=== PATIENT | male | born 1960 | race Two or more races ===

== ENCOUNTER 2021-02-14 15:38 | Inpatient (IN) | payer OTHER, MEDICAID ==
[~2021-02-14] VITALS: Ht 165.1 cm; Wt 90.7 kg
[2021-02-14] MEDS ORDERED: HYDR-4001 PO (16:23)
[2021-02-14] MEDS ORDERED: GABA-532 PO (16:23)
[2021-02-14] MEDS ORDERED: METO-411 PO (16:23)
[2021-02-14] MEDS ORDERED: BENA40TA9 PO (16:23)
[2021-02-14] MEDS ORDERED: SIMV-43 PO (16:23)
[2021-02-14] MEDS ORDERED: MECL-115 PO (16:23)
[2021-02-14] MEDS ORDERED: OMEP20CA14 PO (16:23)
[2021-02-14] MEDS ORDERED: KETOROLAC 15MG/ML VIAL IV ONE (18:45)
[2021-02-14] MEDS ORDERED: MORPHINE SULFATE 4 MG/ML CPJ (NOT FOR IM USE) IV ONE (18:45)
[2021-02-14] MEDS ORDERED: PREDNISONE 20MG TABLET PO ONE (18:45)
[2021-02-14] MEDS ORDERED: KETOROLAC 30MG/ML VIAL IV NR (19:15)
[2021-02-14 19:16] LABS: BASOPHILS % 1.3 % (0.0-2.0); EOSINOPHILS % 2.4 % (0.0-5.0); HEMATOCRIT. 35.7 % (42.0-52.0); HEMOGLOBIN. 11.8 g/dL (14.0-18.0); LYMPHOCYTES % 24.7 % (20.0-50.0); MEAN CORPUSCULAR HEMOGLOBIN 30.4 pg (28.0-32.0); MEAN CORPUSCULAR VOLUME 91.8 fL (80.0-94.0); MEAN PLATELET VOLUME 8.2 fl (7.4-10.4); MONOCYTES % 9.7 % (2.0-8.0); NEUTROPHILS % 61.9 % (40.0-76.0); PLATELET 234 x1000/uL (130-400); RED BLOOD CELL COUNT 3.88 mill/uL (4.7-6.1); RED CELL DISTRIBUTION WIDTH 14.5 % (11.6-14.6)
[2021-02-14 19:20] LABS: CLARITY URINE CLEAR (CLEAR); COLOR URINE YELLOW (YELLOW); KETONES URINE NEGATIVE (NEGATIVE); LEUKOCYTE ESTERASE URINE NEGATIVE (NEGATIVE); NITRITE URINE NEGATIVE (NEGATIVE); OCCULT BLOOD URINE NEGATIVE (NEGATIVE); PH URINE 6.5 (4.5-8.0); PROTEIN URINE NEGATIVE (NEGATIVE); SPECIFIC GRAVITY URINE 1.009 (1.005-1.030); UROBILINOGEN URINE 0.2 E.U./dL (0.2-1.0)
[2021-02-14 19:23] LABS: CHLORIDE 107 mEq/L (98-107)
[2021-02-14] MEDS ORDERED: SODIUM CHLORIDE 0.9% 1,000 ML IV ONE (20:00)
[2021-02-15] MEDS ORDERED: ONDANSETRON HCL 4MG/2ML INJ IV PRN (08:45)
[2021-02-15 09:00] VITALS: BP 140/70
[2021-02-15] MEDS: HYDROCODONE/ACETAMINOPHEN 10/325MG TABLET PO PRN (11:33)
[2021-02-15 12:00] VITALS: BP 140/55
[2021-02-15 16:00] VITALS: BP 144/65
[2021-02-15] MEDS ORDERED: KETOROLAC 30MG/ML VIAL IV PRN (16:00)
[2021-02-15 20:00] VITALS: BP 105/69
[2021-02-15] MEDS ORDERED: MECLIZINE 25MG TABLET PO PRN (21:15)
[2021-02-15 21:53] LABS: PROTHROMBIN TIME 11.1 sec (9.6-11.0)
[2021-02-16] VITALS: BP 163/81
[2021-02-16 01:57] LABS: *AMPHETAMINES SCREEN URINE NEGATIVE (NEGATIVE); *BARBITURATES SCREEN URINE NEGATIVE (NEGATIVE); *BENZODIAZEPINES SCREEN URINE NEGATIVE (NEGATIVE); *COCAINE SCREEN URINE NEGATIVE (NEGATIVE); METHADONE URINE SCREEN NEGATIVE (NEGATIVE); PHENCYCLIDINE URINE SCREEN NEGATIVE (NEGATIVE)
[2021-02-16 01:58] LABS: CANNABINOID URINE SCREEN NEGATIVE (NEGATIVE); OPIATES URINE SCREEN PRESUMTIVE POSITIVE (NEGATIVE)
[2021-02-16] MEDS ORDERED: *PATIENT'S OWN MEDICATION STORAGE XX SCH (02:00)
[2021-02-16 04:00] VITALS: BP 162/76
[2021-02-16 08:00] VITALS: BP 175/84
[2021-02-16] MEDS: GABAPENTIN 300MG CAPSULE PO SCH ×2 (08:22→14:55)
[2021-02-16] MEDS: HYDROCODONE/ACETAMINOPHEN 10/325MG TABLET PO PRN (08:22)
[2021-02-16] MEDS: OMEPRAZOLE 20MG CAPSULE EXTENDED RELEASE PO SCH (09:19)
[2021-02-16] MEDS: AMLODIPINE 10MG TABLET PO SCH (09:19)
[2021-02-16 12:00] VITALS: BP 157/76
[2021-02-16 16:00] VITALS: BP 149/71
[2021-02-16 20:00] VITALS: BP 168/79
[2021-02-16] MEDS ORDERED: ATORVASTATIN CALCIUM 20MG TABLET PO SCH (21:00)
[2021-02-16] MEDS ORDERED: CLONIDINE 0.1MG TABLET PO PRN (21:15)
[2021-02-17] VITALS: BP 141/74
[2021-02-17 04:00] VITALS: BP 149/71
[2021-02-17] MEDS: HYDROCODONE/ACETAMINOPHEN 10/325MG TABLET PO PRN ×3 (05:29→16:00)
[2021-02-17] MEDS: OMEPRAZOLE 20MG CAPSULE EXTENDED RELEASE PO SCH (06:28)
[2021-02-17 08:00] VITALS: BP 152/68
[2021-02-17] MEDS: GABAPENTIN 300MG CAPSULE PO SCH ×2 (09:00→13:00)
[2021-02-17] MEDS: AMLODIPINE 10MG TABLET PO SCH (09:15)
[2021-02-17 12:00] VITALS: BP 158/87
[2021-02-17] MEDS ORDERED: HYDR-4001 MT (14:11)
[2021-02-17 15:46] VITALS: BP 124/73
[2021-02-17 16:00] VITALS: BP 124/73
== END 2021-02-17 16:51 | disposition home health service (06) | DRG 553 ==
LOC: ER 15:38 → 6EST 02-15 00:12 → ENRESERV 02-15 07:17
PROVIDERS: ADMIT Internal Medicine; ATTEND Internal Medicine
DX: M16.11 Unilateral primary osteoarthritis, right hip (principal); N17.0 Acute kidney failure with tubular necrosis; M47.812 Spondylosis without myelopathy or radiculopathy, cervical region; M48.02 Spinal stenosis, cervical region; D64.9 Anemia, unspecified; E66.9 Obesity, unspecified; E78.5 Hyperlipidemia, unspecified; I10 Essential (primary) hypertension; E78.00 Pure hypercholesterolemia, unspecified; M50.20 Other cervical disc displacement, unspecified cervical region; M43.16 Spondylolisthesis, lumbar region; G62.9 Polyneuropathy, unspecified; Z79.899 Other long term (current) drug therapy; Z90.49 Acquired absence of other specified parts of digestive tract; Z71.3 Dietary counseling and surveillance; Z68.33 Body mass index [BMI] 33.0-33.9, adult
CPT/HCPCS: 36415; 72141; 72148; 73502; 80053; 80305; 81003; 85025; 93970; 97161; 99285; J1885; J2270; J7512